=== PATIENT | male | born 1990 | race African-American/Black ===

== ENCOUNTER 2021-07-15 01:34 | Emergency (ER) | payer MEDICARE, OTHER ==
[2021-07-15] MEDS ORDERED: FLUORESCEIN STRIPS 1 MG STRIP LEFT EYE ONE (01:50)
[2021-07-15] MEDS ORDERED: PROPARACAINE 0.5% OPHTH DROPS 15 ML BTL LEFT EYE STA (01:50)
[2021-07-15 01:53] VITALS: RESP 16; TEMP 98.3
[2021-07-15] MEDS ORDERED: KETOROLAC 15 MG/ML 1 ML VIAL IM STA (01:55)
--- NOTE | 2021-07-15 02:04 | ED ---
General Adult HPI - General Chief complaint: Eye Problems Stated complaint: Eye Problem Time Seen by Provider: 07/15/21 01:48 Source: patient, EMS Mode of arrival: EMS Limitations: no limitations - History of Present Illness Initial comments: 30 year-old male patient presents to the emergency department for evaluation of left eye pain. Patient states Thursday evening he was watering his plants. States that the hook on one of the hanging plants swung down and struck him in the left eye. He states that the eye pain worsens when he opens it. States the is able to see. States the light makes the pain worse. Eyes any drainage or bleeding from the eye. Denies any loss of consciousness with the injury. Denies current headache. Denies dizziness, nausea, or vomiting. - Related Data Allergies Allergy/AdvReac Type Severity Reaction Status Date / Time No Known Drug Allergies Allergy Unknown Verified 07/15/21 02:55 Review of Systems ROS Statement: Those systems with pertinent positive or pertinent negative responses have been documented in the HPI. ROS Other: All systems not noted in ROS Statement are negative. Past Medical History Past Medical History: No Reported History History of Any Multi-Drug Resistant Organisms: None Reported Past Surgical History: No Surgical Hx Reported Past Psychological History: No Psychological Hx Reported Smoking Status: Current every day smoker Past Alcohol Use History: Occasional Past Drug Use History: None Reported General Exam Limitations: no limitations General appearance: alert, in no apparent distress, other (This is a well-develo ped, well-nourished adult male patient in no acute distress. Vital signs upon presentation are temperature 98.3F, pulse 89, respirations 16, blood pressure 133/88, pulse ox 99% on room air.) Eye exam: Present: PERRL, EOMI, conjunctival injection (Left eye, perilimbic injection), other (Fluorescein stain with Wood's lamp examination was performed and showed no evidence for corneal abrasion, negative Gonzalo sign. Intraocular pressure to the left eye was 13-14 mmHg. No evidence for foreign body. No periorbital tenderness or swelling.). Absent: scleral icterus, periorbital swelling, periorbital tenderness Respiratory exam: Present: normal lung sounds bilaterally. Absent: respiratory distress, wheezes, rales, rhonchi, stridor Cardiovascular Exam: Present: regular rate, normal rhythm, normal heart sounds. Absent: systolic murmur, diastolic murmur, rubs, gallop, clicks Neurological exam: Present: alert, oriented X3, CN II-XII intact Psychiatric exam: Present: normal affect, normal mood Skin exam: Present: warm, dry, intact, normal color. Absent: rash Course Vital Signs 07/15/21 07/15/21 01:45 02:58 Temperature 98.3 F Pulse Rate 89 72 Respiratory 16 16 Rate Blood Pressure 133/88 131/85 O2 Sat by Pulse 99 98 Oximetry Medical Decision Making - Medical Decision Making 30-year-old male patient presented for evaluation of left eye pain after an injury Thursday evening. Physical examination did reveal left conjunctival injection with perilimbal injection. There is no evidence for corneal abrasion. Intraocular pressure is normal. He was given proparacaine drops, states it did help his symptoms slightly. He does have pain with exposure to light. He is given tobramycin drops for possible injury. He is given cyclopentolate for possibility of traumatic iritis. He'll be discharged to follow-up with ophthalmology on Thursday. Return parameters were discussed in detail. He verbalizes understanding and agrees with this plan. Case discussed with my attending Dr. Pimentel. Disposition Clinical Impression: Traumatic iritis Disposition: HOME SELF-CARE Condition: Good Instructions (If sedation given, give patient instructions): Iritis (ED) Additional Instructions: Directions for medications: Cyclopentolate drops, 1 drop left eye every [address] using this eye drop. Wear sunglasses when outside. Tobramycin drops, 1 drop to the left eye every 6 hours. Wait 15 minutes between each eye drop. Follow up with ophthalmology on Thursday. Return to the emergency department immediately for any new, worsening, or concerning symptoms. Is patient prescribed a controlled substance at d/c from ED?: No Referrals: Terry Prakash MD [STAFF PHYSICIAN] - 1-2 days Time of Disposition: 02:
[2021-07-15] MEDS ORDERED: TOBRAMYCIN 0.3% OPHTH DROPS 5 ML BTL LEFT EYE STA (02:27)
[2021-07-15 03:00] VITALS: BP 131/85; PULSE 72
[2021-07-15] MEDS ORDERED: CYCLOPENTOLATE 1% OPHTH SOLN 2 ML BTL LEFT EYE ONE (03:00)
== END 2021-07-15 03:03 | disposition home or self-care (01) ==
LOC: EC 01:34 → EEVIPCON 01:34 → EC 03:03
DX: H20.9 Unspecified iridocyclitis (principal); F17.200 Nicotine dependence, unspecified, uncomplicated
CPT/HCPCS: 99283; 96372; J1885

== ENCOUNTER 2022-06-03 20:26 | Observation (INO) | payer MEDICARE, OTHER ==
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
[2022-06-03 21:57] LABS: Basophils % (A) 1 %; Eosinophils # (A) 0.4 k/uL (0-0.7); Eosinophils % (A) 6 %; HCT 47.8 % (39.0-53.0); Lymphocytes # (A) 2.7 k/uL (1.0-4.8); Lymphocytes % (A) 39 %; MCH 29.3 pg (25.0-35.0); MCHC 31.3 g/dL (31.0-37.0); MCV 93.7 fL (80.0-100.0); Mean Platelet Volume 8.2; Monocytes # (A) 0.4 k/uL (0-1.0); Monocytes % (A) 5 %; Neutrophils # (A) 3.3 k/uL (1.3-7.7); Neutrophils % (A) 48 %; Platelet Count 326 k/uL (150-450); RDW 13.4 % (11.5-15.5)
[2022-06-03 22:08] LABS: ALT 24 U/L (4-49); AST 22 U/L (17-59); African American GFR (CKD) >90 (>60 ml/min/1.73 sqM); Albumin 4.7 g/dL (3.5-5.0); Alcohol <10 mg/dL; Alkaline Phosphatase 80 U/L (38-126); Anion Gap 11 mmol/L; Blood Urea Nitrogen 11 mg/dL (9-20); Carbon Dioxide 25 mmol/L (22-30); Chloride 103 mmol/L (98-107); Creatine Kinase 234 U/L (55-170); Glucose 138 mg/dL (74-99); Magnesium 1.8 mg/dL (1.6-2.3); Non-African American GFR(CKD) >90 (>60 ml/min/1.73 sqM); Potassium 3.9 mmol/L (3.5-5.1); Sodium 139 mmol/L (137-145); Total Bilirubin 0.6 mg/dL (0.2-1.3); Total Protein 7.8 g/dL (6.3-8.2)
[2022-06-03] MEDS ORDERED: SODIUM CHLORIDE 0.9% 1,000 ML IV ONE (22:11)
--- NOTE | 2022-06-03 22:12 | XR ---
EXAMINATION TYPE: XR chest 2V DATE OF EXAM: 06/03/2022 10:08 PM COMPARISON: None TECHNIQUE: XR chest 2V Frontal and lateral views of the chest. CLINICAL INDICATION:Male, 31 years old with history of Dyspnea; FINDINGS: Lungs/Pleura: There is no evidence of pleural effusion, focal consolidation, or pneumothorax. Pulmonary vascularity: Unremarkable. Heart/mediastinum: Cardiomediastinal silhouette is unremarkable. Musculoskeletal: No acute osseous pathology. IMPRESSION: No acute cardiopulmonary disease/process.
[2022-06-04] MEDS ORDERED: ACETAMINOPHEN TAB 500 MG TAB PO STA (02:03)
[2022-06-04 02:29] LABS: Amphetamine Screen,Urine Not Detected (NotDetected); Barbiturate Screen,Urine Not Detected (NotDetected); Benzodiazepines Screen,Urine Not Detected (NotDetected); Cocaine Screen,Urine Not Detected (NotDetected); Methadone Screen, Urine Not Detected (NotDetected); Opiate Screen,Urine Not Detected (NotDetected); Oxycodone Screen, Urine Not Detected (NotDetected); Phencyclidine Screen,Urine Not Detected (NotDetected); Tricyclic Antidepressant,Urine Not Detected (NotDetected); Urn Cannabinoid Scrn Not Detected (NotDetected)
[2022-06-04] MEDS ORDERED: ACETAMINOPHEN TAB 325 MG TAB PO PRN (04:08)
[2022-06-04] MEDS ORDERED: NALOXONE 0.4 MG/ML 1 ML VIAL IV PRN (04:08)
[2022-06-04] MEDS: clonazePAM 0.5 MG TAB PO SCH ×2 (07:57→20:16)
[2022-06-04] MEDS: lisinopriL 5 MG TAB PO SCH (08:55)
[2022-06-04] MEDS: risperiDONE 2 MG TAB PO SCH ×2 (08:55→20:16)
[2022-06-04] MEDS: chlorproMAZINE 25 MG TAB PO SCH ×3 (08:55→20:16)
[2022-06-04] MEDS ORDERED: MIRTAZAPINE 15 MG TAB PO SCH ×2 (09:00→21:00)
[2022-06-04] MEDS ORDERED: METOPROLOL TARTRATE 50 MG TAB PO SCH ×2 (09:00→22:00)
[2022-06-04] MEDS ORDERED: SERTRALINE 100 MG TAB PO SCH (09:00)
[2022-06-04] MEDS: BENZTROPINE MESYLATE 0.5 MG TAB PO SCH ×2 (09:10→20:16)
[2022-06-04] MEDS: METOPROLOL TARTRATE 25 MG TAB PO SCH ×2 (09:10→16:57)
--- NOTE | 2022-06-04 10:06 | P.CRDCN ---
History of Present Illness History of present illness: HISTORY OF PRESENT ILLNESS: This is a 31-year-old male with a past medical history significant for hypertension, anxiety, depression, bipolar disorder, schizophrenia, marijuana use, occasional alcohol use, and nicotine dependence. Patient does not follow with a electronic imaging system operator. We have been asked to see the patient in consultation for tachycardia. Patient examined at the bedside. Patient presented to the hospital with generalized pain. Patient also reported having increased anxiety. Patient was found to be tachycardic with a heart rate in the 130s. Patient denies any chest pain or pressure. He currently denies shortness of breath. He denies having any palpitations. Telemetry this morning reveals sinus mechanism with a heart rate in the 80s to 90s. Blood pressure is stable. * EKG reveals sinus tachycardia versus atrial tachycardia. No evidence of acute ischemia * Chest xray negative for acute process * Laboratory data: WBC 7.0. Hemoglobin 15.0. Blood count 326. D-dimer is less than 0.17. Sodium 139. Potassium 3.9. BUN 11. Creatinine 1.09. Magnesium 1.8. Troponin negative 1. TSH 0.610. Toxicology screen unremarkable. * Current home cardiac medications include lisinopril 5 mg daily REVIEW OF SYSTEMS: At the time of my exam: CONSTITUTIONAL: Denies fever or chills. HEENT: Denies blurred vision, vision changes, or eye pain. Denies hemoptysis CARDIOVASCULAR: Denies chest pain. Denies orthopnea. Denies PND. Denies palpitations RESPIRATORY: Denies shortness of breath. GASTROINTESTINAL: Denies abdominal pain. Denies nausea or vomiting. HEMATOLOGIC: Denies bleeding disorders. GENITOURINARY: Denies any blood in urine. SKIN: Denies pruitis. Denies rash. PHYSICAL EXAM: VITAL SIGNS: Reviewed. GENERAL: Well-developed in no acute distress. HEENT: Head is normocephalic. Pupils are equal, round. Sclerae anicteric. Mucous membranes of the mouth are moist. Neck supple. No JVD or thyromegaly LUNGS: Respirations even and unlabored. Lungs essentially clear to auscultation bilaterally. HEART: Regular rate and rhythm. S1 and S2 heard. ABDOMEN: Soft. Nondistended. Nontender. EXTREMITIES: Normal range of motion. No clubbing or cyanosis. Peripheral pulses intact. No lower extremity edema NEUROLOGIC: Awake and alert. Oriented x 3. ASSESSMENT: Generalized pain Sinus tachycardia versus atrial tachycardia Hypertension Anxiety Depression Bipolar disorder Schizophrenia Marijuana use Nicotine dependence PLAN: Obtain 2-D echo to assess cardiac structure and function TSH checked and within normal limits Begin metoprolol 25 mg 3 times a day Continue telemetry monitoring Further recommendations pending patient's course Nurse practitioner note has been reviewed by physician. Signing provider agrees with the documented findings, assessment, and plan of care. Past Medical History Past Medical History: No Reported History, Hypertension Additional Past Medical History / Comment(s): Schizophrenia, anxiety, depression History of Any Multi-Drug Resistant Organisms: None Reported Past Surgical History: No Surgical Hx Reported Past Anesthesia/Blood Transfusion Reactions: No Reported Reaction Past Psychological History: Anxiety, Bipolar, Depression, Schizophrenia Smoking Status: Current every day smoker Past Alcohol Use History: Occasional Past Drug Use History: Marijuana Medications and Allergies Home Medications Medication Instructions Recorded Confirmed Type Benztropine Mesylate 0.5 mg PO Q12HR 06/04/22 06/04/22 History Cholecalciferol [Vitamin D3 (125 DAILY 06/04/22 History Mcg = 5000 Iu)] Ibuprofen 800 mg PO Q8H 06/04/22 06/04/22 History Mirtazapine 30 mg PO DAILY 06/04/22 06/04/22 History Sertraline [Zoloft] 100 mg PO DAILY 06/04/22 06/04/22 History chlorproMAZINE [Thorazine] 50 mg PO TID 06/04/22 06/04/22 History clonazePAM [Clonazepam] 0.5 mg PO Q12HR 06/04/22 06/04/22 History lisinopriL [Zestril] 5 mg PO DAILY 06/04/22 06/04/22 History risperiDONE 4 mg PO Q12HR 06/04/22 06/04/22 History Allergies Allergy/AdvReac Type Severity Reaction Status Date / Time No Known Drug Allergies Allergy Unknown Verified 07/15/21 02:55 shellfish derived [Shellfish] Allergy Anaphylaxis Verified 06/03/22 20:45 Physical Exam Vitals: Vital Signs Temp Pulse Pulse Resp BP BP BP 06/04/22 07:00 98.3 F 97 16 124/77 06/04/22 05:29 97.6 F 120 H 16 118/86 06/04/22 05:23 98.0 F 110 H 18 124/84 06/04/22 02:04 112 H 18 125/81 06/03/22 20:45 98.1 F 131 H 18 130/76 Pulse Ox 06/04/22 07:00 98 06/04/22 05:29 96 06/04/22 05:23 98 06/04/22 02:04 98 06/03/22 20:45 99 Intake and Output 06/03/22 06/04/22 06/04/22 22:59 06:59 14:59 Intake Total 600 Balance 600 Intake: Oral 600 Other: # Voids 0 Weight 90.718 kg 90.718 kg Results 06/03/22 21:45 06/03/22 21:45 Cardiac Enzymes 06/03/22 06/03/22 Range/Units 21:45 21:45 AST 22 (17-59) U/L Troponin I <0.012 (0.000-0.034) ng/mL CBC 06/03/22 Range/Units 21:45 WBC 7.0 (3.8-10.6) k/uL RBC 5.10 (4.30-5.90) m/uL Hgb 15.0 (13.0-17.5) gm/dL Hct 47.8 (39.0-53.0) % Plt Count 326 (150-450) k/uL Comprehensive Metabolic Panel 06/03/22 Range/Units 21:45 Sodium 139 (137-145) mmol/L Potassium 3.9 (3.5-5.1) mmol/L Chloride 103 (98-107) mmol/L Carbon Dioxide 25 (22-30) mmol/L BUN 11 (9-20) mg/dL Creatinine 1.09 (0.66-1.25) mg/dL Glucose 138 H (74-99) mg/dL Calcium 10.0 (8.4-10.2) mg/dL AST 22 (17-59) U/L ALT 24 (4-49) U/L Alkaline Phosphatase 80 (38-126) U/L Total Protein 7.8 (6.3-8.2) g/dL Albumin 4.7 (3.5-5.0) g/dL Current Medications Generic Name Dose Route Start Last Admin Trade Name Freq PRN Reason Stop Dose Admin Acetaminophen 650 mg 06/04/22 04:08 06/04/22 07:34 Acetaminophen Tab 325 Mg Tab PO 650 mg Q6HR PRN Administration Mild Pain or Fever > 100.5 Benztropine Mesylate 0.5 mg 06/04/22 09:00 Benztropine Mesylate 0.5 Mg Tab PO Q12HR MALVIN Chlorpromazine HCl 50 mg 06/04/22 09:00 Chlorpromazine 25 Mg Tab PO TID MALVIN Clonazepam 0.5 mg 06/04/22 09:00 06/04/22 07:57 Clonazepam 0.5 Mg Tab PO 0.5 mg Q12HR MALVIN Administration Lisinopril 5 mg 06/04/22 09:00 Lisinopril 5 Mg Tab PO DAILY MALVIN Mirtazapine 30 mg 06/04/22 09:00 Mirtazapine 15 Mg Tab PO DAILY MALVIN Naloxone HCl 0.2 mg 06/04/22 04:08 Naloxone 0.4 Mg/Ml 1 Ml Vial IV Q2M PRN Opioid Reversal Risperidone 4 mg 06/04/22 09:00 Risperidone 2 Mg Tab PO Q12HR MALVIN Sertraline HCl 100 mg 06/04/22 09:00 Sertraline 100 Mg Tab PO DAILY [facility] Intake and Output 06/03/22 06/04/22 06/04/22 22:59 06:59 14:59 Intake Total 600 Balance 600 Intake: Oral 600 Other: # Voids 0 Weight 90.718 kg 90.718 kg 06/03/22 21:45 06/03/22 21:45
--- NOTE | 2022-06-04 10:38 | P.HPIM ---
History of Present Illness H&P Date: 06/04/22 Chief Complaint: Palpitations and shortness of breath Patient is a 31-year-old male with a past medical history of anxiety, schizophrenia, bipolar and hypertension who tells me that he came in because his heart was pounding and he had shortness of breath that started 3 days ago. Patient states that he has a tooth infection and was trying to see a dentist but cannot find anyone. He states that because of the dental pain he was not eating and drinking much. He states that he feels dehydrated because of the heat outside. Patient says that he has been compliant with his medications and occasionally takes an extra dose of some of his meds. Patient states that he is on clonazepam. I told patient that his UDS was negative for any benzos. Patient then states that he ran out of it 3 days ago. Patient states that he lives with his roommate who is not his caregiver. Patient states that he sees a nurse practitioner for her psychiatric issues. In the ED patient was tachycardic with heart rate in the 130s. Patient was referred for admission for his tachycardia. Patient seen by cardiology who started him on metoprolol. Review of Systems 10 ROS reviewed and are negative except as noted in HPI Past Medical History Past Medical History: No Reported History, Hypertension Additional Past Medical History / Comment(s): Schizophrenia, anxiety, depression History of Any Multi-Drug Resistant Organisms: None Reported Past Surgical History: No Surgical Hx Reported Past Anesthesia/Blood Transfusion Reactions: No Reported Reaction Past Psychological History: Anxiety, Bipolar, Depression, Schizophrenia Smoking Status: Current every day smoker Past Alcohol Use History: Occasional Past Drug Use History: Marijuana Medications and Allergies Home Medications Medication Instructions Recorded Confirmed Type Benztropine Mesylate 0.5 mg PO Q12HR 06/04/22 06/04/22 History Cholecalciferol [Vitamin D3 (125 DAILY 06/04/22 History Mcg = 5000 Iu)] Ibuprofen 800 mg PO Q8H 06/04/22 06/04/22 History Mirtazapine 30 mg PO DAILY 06/04/22 06/04/22 History Sertraline [Zoloft] 100 mg PO DAILY 06/04/22 06/04/22 History chlorproMAZINE [Thorazine] 50 mg PO TID 06/04/22 06/04/22 History clonazePAM [Clonazepam] 0.5 mg PO Q12HR 06/04/22 06/04/22 History lisinopriL [Zestril] 5 mg PO DAILY 06/04/22 06/04/22 History risperiDONE 4 mg PO Q12HR 06/04/22 06/04/22 History Allergies Allergy/AdvReac Type Severity Reaction Status Date / Time No Known Drug Allergies Allergy Unknown Verified 07/15/21 02:55 shellfish derived [Shellfish] Allergy Anaphylaxis Verified 06/03/22 20:45 Physical Exam Osteopathic Statement: *. No significant issues noted on an osteopathic structural exam other than those noted in the History and Physical/Consult. Vitals: Vital Signs Temp Pulse Pulse Resp BP BP BP 06/04/22 07:00 98.3 F 97 16 124/77 06/04/22 05:29 97.6 F 120 H 16 118/86 06/04/22 05:23 98.0 F 110 H 18 124/84 06/04/22 02:04 112 H 18 125/81 06/03/22 20:45 98.1 F 131 H 18 130/76 Pulse Ox 06/04/22 07:00 98 06/04/22 05:29 96 06/04/22 05:23 98 06/04/22 02:04 98 06/03/22 20:45 99 Intake and Output 06/03/22 06/04/22 06/04/22 22:59 06:59 14:59 Intake Total 600 Balance 600 Intake: Oral 600 Other: # Voids 0 Weight 90.718 kg 90.718 kg General: [Alert and oriented, well nourished, no acute distress]. Eye: [PERRL, EOMI, normal conjunctiva]. HENT: [Normocephalic, clear tympanic membranes, normal hearing, moist oral mucosa, no scleral icterus, no sinus tenderness, dental caries]. Neck: [Supple, non-tender, no carotid bruits, no JVD, no lymphadenopathy]. Lungs: [Clear to auscultation and percussion, non-labored respiration]. Heart: [Normal rate, regular rhythm, no murmur, gallop or edema]. Abdomen: [Soft, non-tender, non-distended, normal bowel sounds, no masses]. Musculoskeletal: [Normal range of motion and strength, no tenderness or swelling]. Skin: [Skin is warm, dry and pink, no rashes or lesions]. Neurologic: [Awake, alert, and oriented X3, CN II-XII intact]. Psychiatric: [Calm, flat affect]. Results CBC & Chem 7: 06/03/22 21:45 06/03/22 21:45 Labs: Abnormal Lab Results - Last 24 Hours (Table) 06/03/22 Range/Units 21:45 Glucose 138 H (74-99) mg/dL Creatine Kinase 234 H (55-170) U/L Thrombosis Risk Factor Assmnt - Choose All That Apply Any of the Below Risk Factors Present?: No Other Risk Factors: No Other congenital or acquired thrombophilia - If yes, enter type in comment: No Thrombosis Risk Factor Assessment Level: Very Low Risk Assessment and Plan Assessment: #Sinus tachycardia Likely due to dehydration and tooth pain Patient started on metoprolol by cardiology We'll start aggressive IV fluids. Patient also encourage oral hydration Echocardiogram pending #Dental Caries We'll start Augmentin We'll start standing dose of ibuprofen Tylenol when necessary #Hypertension -Resume lisinopril #Anxiety, schizophrenia, bipolar -Resume home psychiatric meds -Consult psychiatry CODE STATUS:full code DVT prophylaxis: mechanical Discussed with: Patient, ER, rn Anticipated length of stay < than [address]: home versus inpatient psych A total of 50 minutes was spent on the care of this complex patient more than 50% of the time was spent in counseling and care coordination.
[2022-06-04] MEDS: AMOXIC-POT CLAV 875-125MG 1 EACH TAB PO SCH ×2 (11:32→20:16)
[2022-06-04] MEDS: SODIUM CHLORIDE 0.9% 1,000 ML IV SCH ×2 (11:32→18:19)
--- NOTE | 2022-06-04 12:47 | CA ---
Transthoracic Echo Report Name: Jovan Kurtz Age: 31 Gender: M : 1990 Exam Date: 06/04/2022 10:43 Exam Location: [place] [facility] Ht (in): 72 Wt (lb): 200 Ordering Physician: Iker Bass Attending/Referring Phys: Chemical Plant Worker Bonita Young RDCS Procedure CPT: Indications: Left ventricular hypertrophy, tachycardia Cardiac Hx: Technical Quality: Good Contrast 1: Total Dose (mL): Contrast 2: Total Dose (mL): MEASUREMENTS (Male / Female) Normal Values 2D ECHO LV Diastolic Diameter PLAX 4.9 cm 4.2 - 5.9 / 3.9 - 5.3 cm LV Systolic Diameter PLAX 2.8 cm IVS Diastolic Thickness 0.8 cm 0.6 - 1.0 / 0.6 - 0.9 cm LVPW Diastolic Thickness 0.9 cm 0.6 - 1.0 / 0.6 - 0.9 cm LV Relative Wall Thickness 0.4 RV Internal Dim ED PLAX 3.2 cm LA Systolic Diameter LX 3.2 cm 3.0 - 4.0 / 2.7 - 3.8 cm LA Volume 51.8 cm??? 18 - 58 / 22 - 52 cm??? M-MODE Aortic Root Diameter MM 3.2 cm MV E Point Septal Separation 0.6 cm AV Cusp Separation MM 2.6 cm DOPPLER AV Peak Velocity 138.7 cm/s AV Peak Gradient 7.7 mmHg MV Area PHT 4.5 cm??? Mitral E Point Velocity 69.8 cm/s Mitral A Point Velocity 52.1 cm/s Mitral E to A Ratio 1.3 MV Deceleration Time 168.5 ms MV E' Velocity 9.5 cm/s Mitral E to MV E' Ratio 7.3 TR Peak Velocity 221.6 cm/s TR Peak Gradient 19.6 mmHg Right Ventricular Systolic Press 24.6 mmHg FINDINGS Left Ventricle Left ventricular ejection fraction is estimated at 55-60 %. Left ventricular cavity size normal. Left ventricular wall thickness normal. Right Ventricle Normal right ventricular size and function. Right ventricular systolic pressure within normal limits. Right Atrium Normal right atrial size. Left Atrium No evidence for an atrial septal defect. Mitral Valve Structurally normal mitral valve. No mitral stenosis, regurgitation or prolapse. Aortic Valve Trileaflet aortic valve. No aortic valve stenosis or regurgitation. Tricuspid Valve Trace to mild tricuspid regurgitation. Pulmonic Valve Structurally normal pulmonic valve. Pericardium Normal pericardium. No pericardial effusion. Aorta Normal size aortic root and proximal ascending aorta. CONCLUSIONS Normal LV size and systolic function. No significant abnormality in the Doppler exam. No pericardial effusion Previewed by: Dr. Anayeli Nascimento MD (Electronically Signed) Final Date: 04 June 2022 12:46
[2022-06-04] MEDS: IBUPROFEN 600 MG TAB PO SCH ×3 (13:16→20:15)
[2022-06-04] MEDS ORDERED: SERTRALINE 50 MG TAB PO STA (14:30)
--- NOTE | 2022-06-04 14:41 | P.CN ---
Psychiatric Consult - . Consult date: 06/04/22 Consult:: 06/04/22 14:32 IDENTIFYING DATA: This patient is a 31-year-old -[place] male with a history of schizophrenia currently lives with his roommate in a home, in [facility]. He is single and and has no kids. Collects [facility] REASON FOR REFERRAL: Psychiatry was consulted for anxiety and schizophrenia HISTORY OF PRESENT ILLNESS: The patient presented to the hospital on 06/03 via EMS. Patient called the ambulance himself and was complaining of pain which was generalized all over and increase in anxiety and also chest discomfort. Patient's UDS was negative. Patient has a history of schizophrenia taking multiple psychiatric medications. Patient was seen initially by EPS nurse who states that patient was not endorsing any suicidal or homicidal ideations and not endorsing any delusions. Patient does have history of chronic auditory hallucinations. Patient was seen today at the bedside and agreeable to speak to check writer salesperson. He states that he is feeling anxious and having shortness of breath and difficulty breathing before coming into the hospital. He states that he was scared and called the ambulance. He was fairly concrete and monotone however was directable during conversation and polite. He states that his heart felt like he was "racing". He claims that he has been taking his psychiatric medications regularly and sees a nurse practitioner who comes to his home. He states that he does have mild auditory hallucinations that are "on and off" and are not disturbing to him. He states that he is feeling better today with regard to his physical symptoms. He states that he moved to [place] recently and is enjoying it there. He is denying any depression at this time or claims that his anxiety has been getting better. States his sleep has been "on and off". Appetite is fair. She does state that sometimes he does get sad. Denying any paranoia at this time . At this time patient denies any suicidal or homical ideations, intent or plan. Patient denies any auditory, visual hallucinations and denies any paranoia or delusions. Patients admits to using cigarettes daily, denies any alcohol use. Occasional marijuana. PAST PSYCHIATRIC HISTORY: Patient has a a history of schizophrenia and anxiety. Patient is on multiple psychiatric medications including Risperdal, Klonopin, Cogentin, Zoloft, Remeron, Thorazine. He states that he is previously psychiatrically hospitalized in 2011 at [facility]. Patient claims that he has a psychiatric nurse practitioner that visits home and is treating him. Patient denies any history of suicide attempts in the past. PAST MEDICAL HISTORY: As per medicine H&P. ALLERGIES: as per EMR. CHEMICAL DEPENDENCY HISTORY: as per HPI. FAMILY PSYCHIATRIC/SUBSTANCE USE HISTORY: Claims that his sister has some form of mental illness SOCIAL HISTORY: Patient was born and raised in [facility] [place] [facility]. He claims that he recently moved to [place]. He states that he lives with a roommate in her home. He is single not , has no kids. He is unemployed and collects SSI. 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 He claims that he was in special education courses and did complete his high school diploma. Denies any legal history. MENTAL STATUS EXAM: General Appearance: Patient appears to have blonde hair, -[place] male, stated age is alert, pleasant, and attempts to be cooperative. Patient vernon ears to have fair hygiene and grooming wearing hospital gown with fair eye contact. Behavior: Patient is calmly lying in bed without any agitated behavior. Attempts to cooperate. Speech: Patient's speech is fluent and nonpressured. Mumbling at times. [place] Mood/Affect: Patient reports their mood is "sometimes", affect is congruent and constricted Suicidality/Homicidality: Patient denies having any suicidal or homicidal ideation intent or plan. Perceptions: Patient denies any visual hallucinations admits to auditory hallucinations which appear to be chronic. Not distressing at this time Though content/process: There is no evidence of any delusional thought content and thought process is linear and goal-directed. [place]. Memory and concentration: AOX3, grossly intact for the purposes of this session. Can spell "WORLD" backwards Judgment and insight: Chronically limited IMPRESSIONS: Schizoaffective disorder, depressive type Anxiety disorder unspecified Nicotine dependence. Cannabis use disorder mild PLAN: -At this time patient DOES NOT meet criteria for inpatient psychiatric admission. -Would recommend the following medication changes/additions: Can continue with current psychiatric medications except for change in schedule Remeron to 30 mg daily at bedtime dosing. Increase Zoloft to 150 mg daily for mood/anxiety. Added BuSpar 15 mg twice a day for anxiety. Informed patient that he should have a discussion with his outpatient provdier about his antipsychotic medications to see about optimizing the dose and closer monitoring along with attempting to consolidate medications more so patient does not have polypharmacy. -Watch Adjuster spoke with patient about substance abuse and the harmful effects on medical and mental health, patient verbally understood and agreed. -Communicated plan to patient's nurse -Psychiatry will sign off at this time -Please contact with any questions.
[2022-06-04] MEDS: busPIRone HCl 5 MG TAB PO SCH ×2 (15:40→20:16)
[2022-06-05] MEDS: SODIUM CHLORIDE 0.9% 1,000 ML IV SCH ×3 (00:10→14:11)
[2022-06-05 07:38] VITALS: BP 120/79; PULSE 87; RESP 18; TEMP 97.9
[2022-06-05] MEDS ORDERED: SERTRALINE 50 MG TAB PO SCH (09:00)
[2022-06-05] MEDS ORDERED: METOPROLOL TARTRATE 50 MG TAB PO SCH (09:00)
[2022-06-05] MEDS: busPIRone HCl 5 MG TAB PO SCH (09:42)
[2022-06-05] MEDS: lisinopriL 5 MG TAB PO SCH (09:42)
[2022-06-05] MEDS: chlorproMAZINE 25 MG TAB PO SCH (09:42)
[2022-06-05] MEDS: IBUPROFEN 600 MG TAB PO SCH (09:43)
[2022-06-05] MEDS: BENZTROPINE MESYLATE 0.5 MG TAB PO SCH (09:44)
[2022-06-05] MEDS: AMOXIC-POT CLAV 875-125MG 1 EACH TAB PO SCH (09:44)
[2022-06-05] MEDS: risperiDONE 2 MG TAB PO SCH (09:45)
[2022-06-05] MEDS: clonazePAM 0.5 MG TAB PO SCH (09:51)
--- NOTE | 2022-06-05 10:19 | P.PN ---
Subjective Progress Note Date: 06/05/22 HISTORY OF PRESENT ILLNESS: This is a 31-year-old male with a past medical history significant for hypertension, anxiety, depression, bipolar disorder, schizophrenia, marijuana use, occasional alcohol use, and nicotine dependence. Patient does not follow with a technical aid. We have been asked to see the patient in consultation for tachycardia. Patient examined at the bedside. Patient presented to the hospital with generalized pain. Patient also reported having increased anxiety. Patient was found to be tachycardic with a heart rate in the 130s. Patient denies any chest pain or pressure. He currently denies shortness of breath. He denies having any palpitations. Telemetry this morning reveals sinus mechanism with a heart rate in the 80s to 90s. Blood pressure is stable. * EKG reveals sinus tachycardia versus atrial tachycardia. No evidence of acute ischemia * Chest xray negative for acute process * Laboratory data: WBC 7.0. Hemoglobin 15.0. Blood count 326. D-dimer is less than 0.17. Sodium 139. Potassium 3.9. BUN 11. Creatinine 1.09. Magnesium 1.8. Troponin negative 1. TSH 0.610. Toxicology screen unremarkable. * Current home cardiac medications include lisinopril 5 mg daily 06/05/2022 Patient examined this morning at the bedside. Patient denies chest pain or pressure. He denies shortness of breath. Vital signs are stable. echocardiogram completed revealing ejection fraction 55-60% PHYSICAL EXAM: VITAL SIGNS: Reviewed. GENERAL: Well-developed in no acute distress. HEENT: Head is normocephalic. Pupils are equal, round. Sclerae anicteric. Mucous membranes of the mouth are moist. Neck supple. No JVD or thyromegaly LUNGS: Respirations even and unlabored. Lungs essentially clear to auscultation bilaterally. HEART: Regular rate and rhythm. S1 and S2 heard. ABDOMEN: Soft. Nondistended. Nontender. EXTREMITIES: Normal range of motion. No clubbing or cyanosis. Peripheral pulses intact. No lower extremity edema NEUROLOGIC: Awake and alert. Oriented x 3. ASSESSMENT: Generalized pain Sinus tachycardia versus atrial tachycardia Hypertension Anxiety Depression Bipolar disorder Schizophrenia Marijuana use Nicotine dependence PLAN: Continue current dose of metoprolol Patient is currently stable from a cardiac standpoint We will sign off. Please reconsult if needed. Nurse practitioner note has been reviewed by physician. Signing provider agrees with the documented findings, assessment, and plan of care. Objective - Vital Signs Vital signs: Vital Signs Temp 97.9 F 06/05/22 07:10 Pulse 87 06/05/22 09:56 Resp 18 06/05/22 07:10 BP 120/79 06/05/22 07:10 Pulse Ox 100 06/05/22 07:10 FiO2 Intake & Output 06/04/22 06/05/22 06/05/22 18:59 06:59 18:59 Intake Total 1318 480 Balance 1318 480 Intake: Oral 1318 480 Other: Voiding Method Toilet # Voids 2 3 - Labs CBC & Chem 7: 06/03/22 21:45 06/03/22 21:45
--- NOTE | 2022-06-05 12:51 | P.DS ---
Providers Date of admission: 06/04/22 05:11 Expected date of discharge: 06/05/22 Attending physician: Vickie Leyva MD Consults: 06/04/22 10:20 Consult Physician Routine Consulting Provider: Alcon Mirza Consult Reason/Comments: Anxiety with bipolar and schizophrenia disorder Do you want consulting provider notified?: Yes Primary care physician: Stated None Hospital Course: Discharge Diagnosis: Sinus tachycardia, patient's started on metoprolol 50 mg twice daily. Patient to follow up outpatient with cardiology in 1 week. Dental caries, complete antibiotic course with Augmentin and follow up outpatient with dental office for treatment of dental caries. Chronic pain, schizophrenia, anxiety, and bipolar disorder. Patient underwent evaluation by our psychiatrist and was started on BuSpar 15 mg twice daily and Zoloft was increased to 150 mg daily. Patient to follow-up with [facility] for continued monitoring and treatment of mental health. Hospital Course: Patient is a 31-year-old male with a past medical history of schizophrenia, anxi ety, bipolar disorder, and hypertension. He presented to the emergency department on 06/04/22 with a chief complaint of palpitations and shortness of breath. Patient reported the symptoms began approximately 3 days ago and believes that these symptoms are correlating with the pain he has been experiencing in his tooth. In the emergency department patient underwent full evaluation. An EKG was completed revealing sinus tachycardia at 122 bpm and concerning for left ventricular hypertrophy. Chest x-ray was negative for acute cardiopulmonary process. CBC and CMP unremarkable. D-dimer less than 0.017 and troponin less than 0.012. Urine drug screen and serum alcohol negative.patient was admitted under our services of consultation to cardiology. Patient was started on Augmentin for infected dental caries. Echocardiogram was completed secondary to EKG concerns of left ventricular hypertrophy. Echo revealing normal EF 55-60% with no valvular or structural or abnormalities. Patient was started on metoprolol and monitored overnight. After initiation of metoprolol heart rate-controlled 60s to 80s. Patient denied having any headache, lightheadedness, dizziness, chest pain, palpitations, shortness of breath, or any other complaints. Patient is medically stable for discharge at this time. Discharge paperwork and instructions being sent to court-appointed guardian's office. Patient discharged home on prescription for Augmentin and metoprolol and was also evaluated by psychiatry who increased patient's Zoloft and added on BuSpar to daily medication regimen. Patient is medically stable at this time. Patient to follow-up with PCP in 1-2 days, cardiology in 1 week, and [facility] for continued mental health management. In addition patient to complete antibiotic as prescribed and to follow up with dentist. Patient's court appointed guardian was notified and discharge paperwork of patient's need for dental appointment for treatment of his dental caries. Physical examination: Patient seen and examined at bedside. Vital signs reviewed and stable. General: Nontoxic, no distress and appears stated age. Derm: Skin warm and dry, normal coloration for ethnicity. Head: Atraumatic, normocephalic and symmetric. Eyes: EOMs intact, no lid lag, and anicteric sclera Mouth: no lip lesions, mucus membranes moist. Dental caries. Cardiovascular: regular rate and rhythm with normal S1S2, no murmur, positive posterior tibial pulses bilaterally, and cap refill < 2 seconds. Lungs: Respirations even, regular, and unlabored on room air. Lungs CTA bilaterally, no rhonchi, no rales, no wheezing, and no accessory muscle usage. Abdominal: soft, nontender to palpation, no guarding, no appreciable organomegaly Ext: ROM intact. No gross muscle atrophy, no edema, no contractures Neuro: Speech clear, face symmetrical and CN II-XII grossly intact with no noted focal neuro deficits Psych: Alert and oriented to person, place, time, and situation. Appropriate and pleasant affect. A total of 33 minutes of time were spent preparing this complex discharge summary. Pt was discharged on 06/05/22 at 12:50 PM. Patient Condition at Discharge: Stable Plan - Discharge Summary Discharge Rx Participant: No New Discharge Prescriptions: New busPIRone HCl [Buspar] 15 mg PO BID 30 Days #60 tab Amoxic-Pot Clav 875-125Mg [Augmentin 875-125] 1 each PO Q12HR 9 Days #18 tab Metoprolol Tartrate [Lopressor] 50 mg PO BID 30 Days #60 tab Sertraline [Zoloft] 150 mg PO DAILY 30 Days #90 tab Continue clonazePAM 0.5 mg PO BID Benztropine Mesylate 0.5 mg PO Q12HR chlorproMAZINE HCL [Thorazine] 50 mg PO BID lisinopriL [Zestril] 5 mg PO DAILY risperiDONE 4 mg PO BID Mirtazapine 30 mg PO HS Cholecalciferol [Vitamin D3 (125 Mcg = 5000 Iu)] 125 mcg PO DAILY Discontinued Sertraline [Zoloft] 100 mg PO DAILY Discharge Medication List Benztropine Mesylate 0.5 mg PO Q12HR 06/04/22 [History] Cholecalciferol [Vitamin D3 (125 Mcg = 5000 Iu)] 125 mcg PO DAILY 06/04/22 [History] Mirtazapine 30 mg PO HS 06/04/22 [History] clonazePAM 0.5 mg PO BID 06/04/22 [History] lisinopriL [Zestril] 5 mg PO DAILY 06/04/22 [History] risperiDONE 4 mg PO BID 06/04/22 [History] Amoxic-Pot Clav 875-125Mg [Augmentin 875-125] 1 each PO Q12HR 9 Days #18 tab 06/05/22 [Rx] Metoprolol Tartrate [Lopressor] 50 mg PO BID 30 Days #60 tab 06/05/22 [Rx] Sertraline [Zoloft] 150 mg PO DAILY 30 Days #90 tab 06/05/22 [Rx] busPIRone HCl [Buspar] 15 mg PO BID 30 Days #60 tab 06/05/22 [Rx] chlorproMAZINE HCL [Thorazine] 50 mg PO BID 06/05/22 [History] Follow up Appointment(s)/Referral(s): Anayeli Nascimento MD [STAFF PHYSICIAN] - 1 Week (Office will call with appointment time and date.) Zina Jeong MD [REFERRING] - 1-2 Days Patient Instructions/Handouts: Chronic Pain (DC), Atrial Tachycardia (DC) Activity/Diet/Wound Care/Special Instructions: DC paperwork needs to be faxed to guardians office at [phone] You need to discuss with your guardian need for dental appointment once you have completed course of antibiotic for treatment of infected dental carries. Medication changes were made by psychiatrist, follow up with [facility] for continued management of these medications. Cardiology added on metoprolol for treatment of your rapid heart rate, you will need to follow up outpatient in their office in 1-2 weeks. Discharge Disposition: HOME SELF-CARE
== END 2022-06-05 15:20 | disposition home or self-care (01) ==
LOC: EC 20:26 → 6NMEDSUR 06-04 05:11
PROVIDERS: ADMIT Internal Medicine; ATTEND Internal Medicine
DX: R00.0 Tachycardia, unspecified (principal); E86.0 Dehydration; K02.9 Dental caries, unspecified; G89.29 Other chronic pain; M79.18 Myalgia, other site; I11.9 Hypertensive heart disease without heart failure; F41.9 Anxiety disorder, unspecified; F25.1 Schizoaffective disorder, depressive type; F31.9 Bipolar disorder, unspecified; F17.200 Nicotine dependence, unspecified, uncomplicated; Z79.899 Other long term (current) drug therapy; Z87.828 Personal history of other (healed) physical injury and trauma; Z91.013 Allergy to seafood; Z56.0 Unemployment, unspecified
CPT/HCPCS: 96361 ×2; 82075; 96360; 99285; 36415; 93005; 93306; 85379; 80053; 84443; 82550; 83735; 84484; 85025; 80306; 71046; G0378 ×2; G0480; 80320